=== PATIENT | male | born 1970 | race Two or more races ===

== ENCOUNTER 2016-12-03 13:05 | Day surgery (SDC) | payer OTHER ==
[2016-12-03] VITALS (13 sets, daily range): BP systolic 115–143; BP diastolic 70–79; PULSE 64–78; RESP 13–25; Ht 172.7 cm; Wt 77.0 kg
[~2016-12-03] VITALS: Ht 172.7 cm; Wt 77.0 kg
[~2016-12-03 13:05] MED LIST: LACTATED RINGER'S 1,000 ML IV* SCH
[2016-12-03] MEDS ORDERED: DULO60CA59 PO (13:41)
[2016-12-03] MEDS ORDERED: QUET200T4 PO (13:42)
[2016-12-03] MEDS ORDERED: TRAZ100T15 PO (13:42)
[2016-12-03] MEDS ORDERED: HYDR-906 PO (13:43)
[2016-12-03] MEDS ORDERED: BACL10TA PO (13:44)
[2016-12-03] MEDS ORDERED: LANS30CA PO (13:46)
[2016-12-03] MEDS ORDERED: GABA300C16 PO (13:47)
[2016-12-03] MEDS ORDERED: CARI350T29 PO (13:49)
[2016-12-03] MEDS ORDERED: SUCR1TAB56 PO (13:50)
[2016-12-03] MEDS ORDERED: PRED5 PO (13:51)
[2016-12-03] MEDS ORDERED: MELO-110 PO (13:52)
[2016-12-03] MEDS ORDERED: PANT40TA3 PO (13:53)
[2016-12-03] MEDS ORDERED: TRAM-40 PO (13:53)
[2016-12-03] MEDS ORDERED: MISO100T PO (13:54)
[2016-12-03] MEDS ORDERED: LYRI200 PO (13:55)
[2016-12-03] MEDS ORDERED: DICL100G37 TOP (13:55)
[2016-12-03] MEDS ORDERED: FENTAnyl 50 MCG/ML VIAL ONE (15:29)
[2016-12-03] MEDS ORDERED: PROPOFOL 20 ML ONE (15:29)
[2016-12-03] MEDS ORDERED: MIDAZOLAM 1 MG/ML 2 ML INJ ONE (15:29)
[2016-12-03] MEDS ORDERED: CEFAZOLIN 1 GM INJ ONE (15:29)
--- NOTE | 2016-12-03 15:32 | HPN ---
Date/Time of Note Date/Time of Note DATE: 12/03/16 TIME: 15:32 Interval H&P Admission Note Pt. seen H&P reviewed: No system changes LUNA SAGASTUME December 03, 2016 15:32
[2016-12-03] MEDS ORDERED: ONDANSETRON 4 MG INJ ONE (15:41)
[2016-12-03] MEDS ORDERED: METOCLOPRAMIDE 10 MG INJ ONE (15:41)
[2016-12-03] MEDS ORDERED: KETOROLAC 30 MG INJ ONE (15:41)
[2016-12-03] MEDS ORDERED: BUPIVACAINE 0.5% (SDV) 30 ML INJ ONE (15:44)
[2016-12-03] MEDS ORDERED: DEXAMETHASONE 4 MG/ML 1 ML INJ ONE (15:45)
[2016-12-03] MEDS ORDERED: LABETALOL HCL 20MG INJ IV PRN (16:30)
[2016-12-03] MEDS ORDERED: ONDANSETRON 4 MG INJ IV PRN (16:30)
[2016-12-03] MEDS ORDERED: METOCLOPRAMIDE 10 MG INJ IV PRN (16:30)
[2016-12-03] MEDS ORDERED: OXYCODONE/ACETAMINOPHEN (5/325) TAB PO PRN ×2 (16:30)
[2016-12-03] MEDS ORDERED: EPHEDrine SULFATE 50 MG/5 ML SYG IV PRN (16:30)
[2016-12-03] MEDS ORDERED: MEPERIDINE 25 MG INJ IV PRN (16:30)
[2016-12-03] MEDS ORDERED: DIPHENHYDRAMINE 50 MG INJ IV PRN (16:30)
[2016-12-03] MEDS ORDERED: morphine (1 MG/ML) 10ML SYRINGE IV PRN ×3 (16:30)
[2016-12-03] MEDS ORDERED: HYDROmorphONE (0.2 MG/ML) 10ML SYG IV PRN ×3 (16:30)
[2016-12-03] MEDS ORDERED: HYDROCODONE/APAP (5/325) TAB PO PRN (17:00)
--- NOTE | 2016-12-03 17:52 | OPR ---
DATE OF OPERATION: 12/03/2016 SURGEON: Flavio Badillo MD ANESTHESIA: General plus local. PREOPERATIVE DIAGNOSES: 1. 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 1. Left index trigger distal interphalangeal joint mucous cyst. POSTOPERATIVE DIAGNOSES: 1. 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 2. Left index trigger distal interphalangeal joint mucous cyst. PROCEDURE: 1. Excision of left index finger distal interphalangeal joint mucous cyst. 2. Left index finger distal interphalangeal joint arthrotomy with osteophyte resection. OPERATIVE FINDINGS: Osteophyte formation at the distal interphalangeal joint of the left index fing er with mucous cyst formation. INDICATION FOR PROCEDURE: A 46-year-old male with longstanding left index finger mucous cyst. The cyst fluctuated in size but was persistent and was causing the patient discomfort. After a period o f conservative management, the patient elected to proceed with surgical intervention, understanding the risks and benefits. DESCRIPTION OF PROCEDURE: The patient was seen in the preoperative area, and all further questions were answered. Again, he gave informed consent, understanding the risks and benefits. He was taken to operative suite and placed in supine position. He was placed under general anesthesia and Ancef 2 grams given. Left upper extremity was prepped with ChloraPrep stick and draped in the usual ster ile fashion. An Esmarch bandage was placed at the base of the left index finger and secured with a curved hemostat as a finger tourniquet. Ten mL total volume of 0.5% Marcaine was injected at the ba se of the left index finger to act as a digital block. An H type incision over the dorsal DIPJ of t he left index finger was utilized with sharp dissection carried down through skin and subcutaneous t issue. Full thickness skin flaps were raised directly above the paratenon of the extensor tendon, b oth proximally and distally, and the DIPJ was visualized. The radial and ulnar aspects of the termi nal extensor tendon were incised longitudinally to create an arthrotomy into the DIPJ. Osteophytes were visualized and were removed with rongeur and curette. After all osteophytes were resected, a s mall portion of the skin where the mucous cyst was forming was also excised. The terminal extensor tendon was intact after debridement. Wound was copiously irrigated and skin closed with 5-0 nylon. Xeroform was placed over the wound followed by sterile gauze, Webril, and a finger splint with the DIPJ in full extension. Tourniquet deflated after 36 total minutes. The patient was awakened from anesthesia and taken to the postoperative suite in stable condition. He tolerated procedure well wi thout complication. SPECIMENS: None. ESTIMATED BLOOD LOSS: 5 mL COUNTS: Sponge, instrument, needle counts correct. TOURNIQUET TIME: 36 minutes. CONDITION ON DISCHARGE: Stable. Dictated By: FLAVIO FRANK/DANIELLE Conf#: [id number] DID#: [id number]
== END 2016-12-03 19:16 | disposition home or self-care (01) ==
LOC: SDS 13:05
PROVIDERS: ATTEND Orthopaedic Surgery Hand Surgery
DX: M19.042 Primary osteoarthritis, left hand (principal); M25.842 Other specified joint disorders, left hand
CPT/HCPCS: 26080; J0690; J1100; J1885; J2250; J2405; J2765; J3010; Z7512; Z7610